=== PATIENT | male | born 1990 | race Caucasian/White ===

== ENCOUNTER 2021-05-20 19:54 | Inpatient (IN) | payer BC, MEDICAID ==
[~2021-05-20] VITALS: Ht 182.9 cm; Wt 115.0 kg
[2021-05-20 22:30] LABS: BASOPHILS % (AUTO) 0.4 % (0.0-2.0); EOSINOPHILS % (AUTO) 3.6 % (1.0-6.0); HEMATOCRIT 46.5 % (41-53); HEMOGLOBIN 16.1 g/dL (13.5-17.5); LYMPHOCYTES % (AUTO) 29.2 % (22.0-44.0); MEAN CORPUSCULAR HEMOGLOBIN 30.8 pg (26.0-34.0); MEAN CORPUSCULAR HGB CONC 34.7 G/dL (31.0-37.0); MEAN CORPUSCULAR VOLUME 89 fL (80-100); MONOCYTES # (AUTO) 0.8 K/uL (0.1-1.0); MONOCYTES % (AUTO) 10.9 % (2.0-9.0); NEUTROPHILS # (AUTO) 3.9 K/uL (1.8-7.7); NEUTROPHILS % (AUTO) 55.9 % (40.0-70.0); PLATELET COUNT (AUTO) 234 K/uL (150-450); RED BLOOD CELL COUNT(AUTO) 5.23 MIL/uL (4.50-5.90); RED CELL DISTRIBUTION WIDTH 12.6 % (11.5-14.5)
[2021-05-20 22:42] LABS: ANION GAP 8 mmol/L (8-16); CALCIUM, TOTAL 9.7 mg/dL (8.8-10.5); CARBON DIOXIDE 31 mmol/L (22-29); CHLORIDE 103 mmol/L (98-107); CREATININE 1.03 mg/dL (0.60-1.30); GLOMERULAR FILTR. RATE CALC > 60 mL/min (>60); GLUCOSE,RANDOM 127 mg/dL (70-110); POTASSIUM 3.9 mmol/L (3.5-5.1); SODIUM SERUM 142 mmol/L (136-145); UREA NITROGEN, BLOOD 15 mg/dL (7-18)
[2021-05-20 22:48] LABS: ALANINE AMINOTRANSFERASE 248 U/L (12-78); ALBUMIN 4.2 g/dL (3.4-5.0); ALKALINE PHOSPHATASE 79 U/L (46-116); ASPARTATE AMINOTRANSFERASE 66 U/L (15-37); BILIRUBIN,TOTAL 0.4 mg/dL (0.1-1.0); TOTAL PROTEIN, SERUM 7.9 g/dL (6.4-8.2)
[2021-05-20] MEDS ORDERED: BENZONATATE 100 MG CAPSULE PO PRN (23:30)
[2021-05-20] MEDS ORDERED: ACETAMINOPHEN 325 MG TABLET PO PRN (23:30)
[2021-05-20] MEDS ORDERED: ONDANSETRON HCL 4 MG/2 ML VIAL IVP PRN (23:30)
[2021-05-20] MEDS: HEPARIN SODIUM,PORCINE 5,000 UNITS/ML VIAL SQ SCH (23:54)
[2021-05-21] MEDS: HEPARIN SODIUM,PORCINE 5,000 UNITS/ML VIAL SQ SCH ×2 (08:08→15:28)
[2021-05-22] MEDS: HEPARIN SODIUM,PORCINE 5,000 UNITS/ML VIAL SQ SCH ×4 (00:47→23:07)
[2021-05-22] MEDS ORDERED: QUET50TA15 PO (00:59)
[2021-05-22] MEDS ORDERED: FLUO20CA36 PO (00:59)
[2021-05-22] MEDS ORDERED: QUEtiapine FUMARATE 25 MG TABLET PO ONE (01:15)
[2021-05-22 08:24] LABS: COVID AG,FIA SOURCE NASOPHARYNGEAL
[2021-05-22 09:09] VITALS: BP 131/66
[2021-05-22 09:27] VITALS: BP 131/66
[2021-05-22 15:01] VITALS: BP 128/74
[2021-05-22 19:41] VITALS: BP 134/78
[2021-05-22] MEDS ORDERED: FLUoxetine HCL 20 MG CAPSULE PO ONE (21:15)
[2021-05-23 07:34] VITALS: BP 126/80
[2021-05-23] MEDS: FLUoxetine HCL 20 MG CAPSULE PO SCH (08:14)
[2021-05-23] MEDS: HEPARIN SODIUM,PORCINE 5,000 UNITS/ML VIAL SQ SCH ×3 (08:20→23:23)
[2021-05-23 15:23] VITALS: BP 132/84
[2021-05-23 19:02] VITALS: BP 136/72
[2021-05-24] MEDS ORDERED: QUEtiapine FUMARATE 25 MG TABLET PO ONE
[2021-05-24] MEDS: FLUoxetine HCL 20 MG CAPSULE PO SCH (07:44)
[2021-05-24] MEDS: HEPARIN SODIUM,PORCINE 5,000 UNITS/ML VIAL SQ SCH ×3 (07:44→23:44)
[2021-05-24 16:06] VITALS: BP 129/79
[2021-05-24 16:07] LABS: BASOPHILS % (AUTO) 0.4 % (0.0-2.0); EOSINOPHILS % (AUTO) 2.1 % (1.0-6.0); HEMATOCRIT 44.2 % (41-53); HEMOGLOBIN 15.3 g/dL (13.5-17.5); LYMPHOCYTES # (AUTO) 1.8 K/uL (1.0-4.8); LYMPHOCYTES % (AUTO) 23.1 % (22.0-44.0); MEAN CORPUSCULAR HEMOGLOBIN 30.4 pg (26.0-34.0); MEAN CORPUSCULAR HGB CONC 34.6 G/dL (31.0-37.0); MEAN CORPUSCULAR VOLUME 88 fL (80-100); MONOCYTES # (AUTO) 0.6 K/uL (0.1-1.0); MONOCYTES % (AUTO) 7.9 % (2.0-9.0); NEUTROPHILS # (AUTO) 5.3 K/uL (1.8-7.7); NEUTROPHILS % (AUTO) 66.5 % (40.0-70.0); PLATELET COUNT (AUTO) 262 K/uL (150-450); RED BLOOD CELL COUNT(AUTO) 5.03 MIL/uL (4.50-5.90); RED CELL DISTRIBUTION WIDTH 12.6 % (11.5-14.5)
[2021-05-24 16:18] LABS: ANION GAP 5 mmol/L (8-16); CALCIUM, TOTAL 9.2 mg/dL (8.8-10.5); CARBON DIOXIDE 29 mmol/L (22-29); CHLORIDE 103 mmol/L (98-107); CREATININE 0.87 mg/dL (0.60-1.30); GLOMERULAR FILTR. RATE CALC > 60 mL/min (>60); GLUCOSE,RANDOM 134 mg/dL (70-110); SODIUM SERUM 137 mmol/L (136-145); UREA NITROGEN, BLOOD 12 mg/dL (7-18)
[2021-05-24 16:25] LABS: ALANINE AMINOTRANSFERASE 231 U/L (12-78); ALBUMIN 3.9 g/dL (3.4-5.0); ALKALINE PHOSPHATASE 71 U/L (46-116); ASPARTATE AMINOTRANSFERASE 72 U/L (15-37); BILIRUBIN,TOTAL 0.5 mg/dL (0.1-1.0); TOTAL PROTEIN, SERUM 7.4 g/dL (6.4-8.2)
[2021-05-24 19:27] VITALS: BP 143/84
[2021-05-25] MEDS: HEPARIN SODIUM,PORCINE 5,000 UNITS/ML VIAL SQ SCH ×3 (08:00→15:15)
[2021-05-25] MEDS: FLUoxetine HCL 20 MG CAPSULE PO SCH ×3 (08:30→14:57)
[2021-05-25 16:10] VITALS: BP 128/84
[2021-05-25 19:26] VITALS: BP 125/68
[2021-05-26] MEDS: HEPARIN SODIUM,PORCINE 5,000 UNITS/ML VIAL SQ SCH ×3 (00:27→16:00)
[2021-05-26 04:12] VITALS: BP 119/67
[2021-05-26 08:04] VITALS: BP 122/68
[2021-05-26] MEDS: FLUoxetine HCL 20 MG CAPSULE PO SCH (12:36)
[2021-05-26 15:17] VITALS: BP 129/78
[2021-05-26 19:31] VITALS: BP 141/73
== END 2021-05-26 20:20 | disposition home or self-care (01) | DRG 178 ==
LOC: EMS 19:54 → 6N 05-22 06:42
PROVIDERS: ADMIT Internal Medicine; ATTEND Internal Medicine
DX: U07.1 COVID-19 (principal); R45.851 Suicidal ideations; D68.8 Other specified coagulation defects; F33.2 Major depressive disorder, recurrent severe without psychotic features; R74.8 Abnormal levels of other serum enzymes; Z91.51 Personal history of suicidal behavior
CPT/HCPCS: 80053; 85025; 85379; 99285; J1644